=== PATIENT | male | born 1985 | race Caucasian/White ===

== ENCOUNTER 2018-04-27 19:53 | Emergency (ER) | payer SELFPAY ==
[~2018-04-27] VITALS: Ht 172.7 cm; Wt 82.0 kg
[2018-04-27] MEDS ORDERED: TETANUS, DIPHTHERIA, PERTUSSIS VAC/PF 0.5ML (>7YR OLD) IM ONE (20:15)
[2018-04-27] MEDS ORDERED: LIDOCAINE HCL 1% 20ML VIAL (Pyxis) INJ INFIL ONE (20:45)
[2018-04-27] MEDS ORDERED: AMOXICILLIN/POTASSIUM CLAVULANATE 875/125MG TAB PO ONE (21:45)
[2018-04-27 22:00] VITALS: BP 150/90
== END 2018-04-27 22:07 | disposition home or self-care (01) ==
LOC: ER 20:08
DX: S66.323A Laceration of extensor muscle, fascia and tendon of left middle finger at wrist and hand level, initial encounter (principal); S51.812A Laceration without foreign body of left forearm, initial encounter; X78.0XXA Intentional self-harm by sharp glass, initial encounter; Y93.89 Activity, other specified; Y92.89 Other specified places as the place of occurrence of the external cause; Z23 Encounter for immunization
CPT/HCPCS: 12001; 29130; 73130; 90471; 90715; 99283; J3490; Z7610